=== PATIENT | female | born 1940 | race Caucasian/White ===

== ENCOUNTER → 2020-07-10 | Outpatient (CLI) | payer MEDICARE, OTHER ==
[2014-10-15 14:00] VITALS: BP 132/72
[~2020-07-10] MED LIST: CETI10TA74 PO; DICL75TA PO; ESTR0.5T PO; OMEP20CA16 PO; TRAM50TA PO; UBID100C26 PO; ZOLP10TA4 PO
--- NOTE | 2020-07-10 10:24 | KCIC ---
Study: MRI of the right hip without contrast INDICATION: Bilateral hip tendinitis. Chronic hip pain. COMPARISON: Right hip MRI 01/24/2015; hip radiographs 09/28/2019 TECHNIQUE: Multiplanar MR imaging of the right hip performed without the use of intravenous or intra- articular contrast. FINDINGS: Bones/hip: No fracture, avascular necrosis or stress reaction. No subchondral cystic change or signif icant subchondral marrow edema. Right hip arthrosis is minimal for patient age. Mild chronic remodeli ng at the greater trochanter. Labrum/cartilage: Degenerative heterogeneity of the labrum at a few locations but without a displaced labral tear or large paralabral cyst. The appearance of the labrum is not beyond what is frequently seen in a patient this age. Mild superficial chondrosis. No well delineated full-thickness defect or delamination. Ligamentum teres: At least partially torn and very diminutive near the fovea capitis. Greater trochanteric bursa: No fluid distention to suggest bursitis. Musculotendinous: Chronic partial-thickness tear of the gluteus medius and minimus. Intact rectus fem sonya and iliopsoas. Mild common hamstring origin tendinosis. Localized fatty infiltration within a po rtion of the gluteus medias approaching its insertion and mild fatty infiltration of the gluteus mini mus. No significant muscular edema. Normal ischiofemoral space. Miscellaneous: No mass effect on the sciatic nerve bundle. Small hip joint effusion. IMPRESSION: 1. No acute osseous abnormality at the right hip or elsewhere throughout the pelvis. 2. Degenerative heterogeneity of the labrum at several locations but not atypical for patient age. N o displaced tear or paralabral cyst. Superficial chondrosis without a full-thickness defect. Overall right hip arthrosis is very mild for patient age. 3. Chronic partial-thickness tearing of the gluteus medius and minimus. No acute tendon disruption. Mild common hamstring origin tendinosis. 4. Small right hip effusion. Electronically signed by: SULEMA TEAGUE MD (07/10/2020 10:22 AM) [id number]
--- NOTE | 2020-07-10 10:32 | KCIC ---
Study: MRI of the left hip without contrast INDICATION: Bilateral hip tendinitis. Chronic hip pain. COMPARISON: Left hip MRI 01/24/2015 TECHNIQUE: Multiplanar MR imaging of the left hip performed without the use of intravenous or intra-a rticular contrast. FINDINGS: Bones/hip: No fracture, avascular necrosis or stress reaction. No subchondral cystic change or signif icant subchondral marrow edema. Right hip arthrosis is mild for patient age. Mild chronic remodeling at the greater trochanter. Labrum/cartilage: Scattered labral degenerative signal/degenerative tearing slightly more pronounced relative to the right hip. Partial thickness chondrosis without a discrete full-thickness defect. Ligamentum teres: Diminutive approaching the fovea capitis typical of degeneration/chronic partial te aring. Greater trochanteric bursa: No fluid distention to suggest bursitis. Musculotendinous: Mild thickening of the gluteus medius but without a high-grade tear. Chronic partia l tear of the gluteus minimus on a background of tendinosis. Intact rectus femoris and iliopsoas. Mil d common hamstring origin tendinosis. Fatty infiltration of portions of the gluteus medius and minimu s. Normal ischiofemoral space. Miscellaneous: No mass effect on the sciatic nerve bundle. No significant hip joint effusion. Colonic diverticuli. Absent uterus.. IMPRESSION: 1. No acute osseous abnormality at the left hip. 2. Scattered labral degeneration/degenerative tearing slightly more pronounced relative to the right hip. Partial thickness chondrosis without a full-thickness defect. Overall left hip arthrosis is mil d for patient age. 3. Chronic partial tearing of the gluteus minimus on a background of tendinosis. Mildly thin but int act gluteus medius. No acute tendon disruption. Mild common hamstring origin tendinosis. 4. Diminutive/partially torn ligamentum teres. Electronically signed by: SULEMA TEAGUE MD (07/10/2020 10:30 AM) [id number]
== END ==
LOC: KCIC MRI 07:52
PROVIDERS: ATTEND Orthopaedic Surgery
DX: M76.891 Other specified enthesopathies of right lower limb, excluding foot (principal); M76.892 Other specified enthesopathies of left lower limb, excluding foot
CPT/HCPCS: 73721

== ENCOUNTER → 2020-10-09 | Outpatient (CLI) | payer MEDICARE ==
[2014-10-15 14:00] VITALS: BP 132/72
[~2020-10-09] MED LIST changes: +BUPIVACAINE MPF 0.25% 10 ML VIAL. ONE; +IOHEXOL 180 MG/ML 10 ML VIAL. ONE; +LACT1CAP6 PO; +fiber; +methylPREDNISolone ACETATE 80 MG/ML VIAL. ONE
--- NOTE | 2020-10-09 13:04 | PDOC1 ---
INITIAL PAIN CONSULT DATE OF SERVICE: DOS: DATE: 10/09/20 TIME: 12:57 CHIEF COMPLAINT: Chief Complaint: Bilateral hip pain HISTORY OF PRESENT ILLNESS: 79-year-old female presents history of pain in bilateral hips for many years worse over the past year or so patient is beginning injections with orthopedic surgeon in the past however he is relocated and having significant pain referred by her primary physician today for pain in the bilateral hips patient reports her right is much worse than the left but is present bilaterally worse with walking standing specially getting up from seated position and walking more on the right than the left patient did have MRI scan showing some superficial chondrosis without a full-thickness defect overall right kyphosis is mild for patient's age chronic partial-thickness tear of the gluteus medius and minimus without acute tendon disruption patient has a partial torn ligamentum teres near the fovea capitis as well. Patient reports is much worse with changing positions better with sitting still or laying down but wakes her from sleep about twice a night patient reports is not effective bowel bladder control significantly does affect her ability to walk significant however is not using any assistive devices to ambulate. Patient reports she has had some injections in the past as well as injections for her trochanters which have been helpful patient takes tramadol which is also helpful also [id number] Tylenol which is helpful. 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 PAST MEDICAL HISTORY: PMH: Arthritis, gastroesophageal reflux, hearing loss PREVIOUS SURGERIES: Past Surgical Hx: Lumbar fusion, total abdominal hysterectomy, laparoscopic cholecystectomy, h epatic lateral cataract extractions, tonsillectomy CURRENT MEDICATIONS: Current Meds: Active Scripts Medications Dose Route/Sig Max Daily Dose Days Date Category Coq-10 (Ubidecarenone) 100 Mg Capsule 300 Mg PO 10/09/14 Reported Zolpidem Tartrate 10 Mg Tablet 1 Tab PO QHS 10/09/14 Reported Tramadol Hcl 50 Mg Tablet 50 Mg PO DAILY PRN 10/09/14 Reported Zyrtec (Cetirizine Hcl) 10 Mg Tablet 1 Tab PO DAILY 10/09/14 Reported Estradiol 0.5 Mg Tablet 1 Tab PO DAILY 10/09/14 Reported Omeprazole 20 Mg Capsule.dr 20 Mg PO DAILY 10/09/14 Reported Diclofenac Sodium 75 Mg Tablet.dr 75 Mg PO DAILY 10/09/14 Reported ALLERGIES; Allergies: Coded Allergies: codeine (Unverified Allergy, Intermediate, rash, 10/09/14) naproxen (Verified Allergy, Intermediate, rash, 10/09/14) red dye (Verified Allergy, Intermediate, Rash, 10/09/14) adhesive (Verified Allergy, Mild, Rash, 10/15/14) FAMILY HISTORY: Family Hx: No major medical problems or conditions that she is aware of. SOCIAL HISTORY: Social Hx: Patient is alcohol about 1 alcoholic drink a day does not smoke says any illegal illicit or recreational drugs is lives with his spouse lives locally in [facility] and is currently retired. REVIEW OF SYSTEMS: ROS: Positive for those items mentioned in history of present illness, all systems are reviewed, otherwise negative ,and are complete full and well-documented on patient's chart. PHYSICAL EXAM: VS: Blood pressure is 162/61 pulse 88 respirations 16 temperature 98.1 F height is 5 feet 4 inches weight is 143 pounds PE: PHYSICAL EXAMINATION: GENERAL: The patient is awake, alert, oriented, appropriate, very pleasant in demeanor, patient companied by her spouse. HEENT: Shows normocephalic, atraumatic. Extraocular movements are intact and symmetrical. Oral cavity: Mucous membranes moist and pink. NECK: Shows anterior throat supple without palpable lymphadenopathy noted. Swallow reflex symmetrical. CHEST: Shows normal on inspection. Breath sounds are clear bilaterally, distant but no rales rhonchi or wheezes auscultated. HEART: Shows S1, S2 clear. No murmurs auscultated. ABDOMEN: Soft, nontender, nondistended, obese. No palpable organomegaly is noted. BACK: Shows spine grossly in the midline. Normal-appearing cervical lordotic curvature. There is slightly increased thoracic kyphosis, some minor flattening of the lumbar lordotic curvature. Lumbar paraspinous muscles show symmetrical on inspection, on palpation shows some moderate tenderness diffusely throughout the upper, middle and lower distribution of the paraspinous muscles bilaterally and also into the lower thoracic paraspinous musculature, firm and tender, but without specific trigger points, without radiation of pain. The patient has good rotational motion of the lumbar spine, both laterally as well as extension and flexion without significant difficulty. No tenderness over the spinous p rocesses, sacrum or sacroiliac regions. EXTREMITIES: Lower extremities show deep tendon reflexes 2+ in the patellar and tendo calcaneus tendons. Motor exam is 4 on a scale of 5 with right dorsiflexion, extension, quadriceps and hamstring flexion and 4/5 on the left. Peripheral pulses are 1 posterior tibial. No peripheral edema is noted bilaterally. Lower extremities are warm and dry to touch, equal in color and appearance. Straight leg raise noted to be negative bilaterally. Gaenslen's and Jimmy's maneuvers are negative bilaterally as well. The patient is able to stand, stand on toes out significant difficulty or loss of balance. With abduction of the lower legs however significant tenderness more on the right than the left and the lateral aspect of the hip with radiation to the lateral thigh bilaterally again worse on the right. SKIN: Shows warm and dry, good turgor. No edema. No sores, rashes or bruising throughout. IMPRESSION: Impression: 79-year-old female with long history of bilateral hip pain worse over the past 6 months to a year without any specific injury or accident. MRI scan as noted Arthritis Hearing loss Plan: Options discussed with patient patient spouse who accompanied her to visit today. We will proceed with bilateral greater trochanteric bursa injections with fluoroscopic guidance today. Risk discussed including but not limited to bleeding infection possibly intravascular ejection sequelae spread local anesthetic numbness side effects of steroid medication exposure fluoroscopy and portals regarding pain control. He understands wished to proceed. Patient will return to clinic in approximately 2 weeks for follow-up, was counseled as to return appointment activity level, and side effects be aware. Under sterile prep and drape patient in supine position using C-arm fluoroscopic guidance patient's bilateral greater trochanters were visualized. Using 25- gauge needle and 1% lidocaine area lateral to the greater trochanters were anesthetized. Using a 25-gauge needle under direct fluoroscopic visualization the greater trochanteric bursa was contacted with negative aspiration noted. 1.5 cc of contrast was then injected with good local spread at the greater trochanteric bursa without washout bilaterally. At this time, a solution containing 3 cc of 0.25% bupivacaine and 60 mg Depo-Medrol was then injected into each greater trochanteric bursa, for a total of 120 mg Depo-Medrol and 6 cc 0.25% bupivacaine. Patient tolerated the procedure well and had no comp lications. MARTHA CASTRO MD Oct 09, 2020 13:04
--- NOTE | 2020-10-09 13:04 | PDOC4 ---
Procedure Note: ICD 10 Code: ICD 10 Code: M70.61 M70.62 Procedure Note: Patient was consented for bilateral greater trochanteric bursa injection with fluoroscopic guidance. Risk discussed including but not limited to bleeding infection possibility of intravascular injection sequelae spread local anesthetic numbness side effects steroid medication and poor results regarding pain control. Patient understands wished to proceed. Under sterile prep and drape patient in supine position using C-arm fluoroscopic guidance patient's bilateral greater trochanters were visualized. Using 25- gauge needle and 1% lidocaine area lateral to the greater trochanters were anesthetized. Using a 25-gauge needle under direct fluoroscopic visualization the greater trochanteric bursa was contacted with negative aspiration noted. 1.5 cc of contrast was then injected with good local spread at the greater trochanteric bursa without washout bilaterally. At this time, a solution containing 3 cc of 0.25% bupivacaine and 60 mg Depo-Medrol was then injected into each greater trochanteric bursa, for a total of 120 mg Depo-Medrol and 6 cc 0.25% bupivacaine. Patient tolerated the procedure well and had no complications. MARTHA CASTRO MD Oct 09, 2020 13:04
== END | disposition home or self-care (01) ==
LOC: PNCL 11:26
PROVIDERS: ATTEND Anesthesiology
DX: M25.552 Pain in left hip (principal); M25.551 Pain in right hip; K21.9 Gastro-esophageal reflux disease without esophagitis; M19.90 Unspecified osteoarthritis, unspecified site; Z90.710 Acquired absence of both cervix and uterus; Z90.49 Acquired absence of other specified parts of digestive tract; Z98.890 Other specified postprocedural states; Z79.899 Other long term (current) drug therapy; Z88.5 Allergy status to narcotic agent; Z88.8 Allergy status to other drugs, medicaments and biological substances; E78.00 Pure hypercholesterolemia, unspecified
CPT/HCPCS: 20610; 77002; J1040; J3490; Q9965